=== PATIENT | male | born 1960 | race Caucasian/White ===

== ENCOUNTER → 2016-10-23 | Outpatient (CLI) | payer BC ==
[~2016-10-23] MED LIST: NAPR1TAB9 PO
[2016-10-23 17:49] LABS: BASO % 0.6 %; BASO ABS # 0.04 K/uL (0-0.2); COMPLETE YES; EOS % 1.1 %; HEMATOCRIT 51.1 % (42-52); IG% 0.3 %; LYMPH % 34.5 %; LYMPH ABS # 2.14 K/uL (1.2-3.4); MEAN CELL VOLUME 91.7 fL (80-100); MEAN CORPUSCULAR HEMOGLOBIN 31.4 pg (25-34); MEAN CORPUSCULAR HGB CONC 34.2 g/dl (32-36); MEAN PLATELET VOLUME 11.7 fL (7.4-10.4); MONO % 14.2 %; NEUT % 49.3 %; PLATELET COUNT 222 K/uL (130-400); RED BLOOD COUNT 5.57 M/uL (4.7-6.1)
[2016-10-23 17:55] LABS: ALB/GLOB RATIO 0.9 (0.9-2); ALT/SGPT 52 U/L (12-78); AST/SGOT 27 U/L (15-37); BLOOD UREA NITROGEN 16 mg/dl (7-18); CALCIUM 9.2 mg/dl (8.5-10.1); CARBON DIOXIDE 29 mmol/L (21-32); CHLORIDE 105 mmol/L (98-107); CHOLESTEROL 151 mg/dl (0-200); GLUCOSE 80 mg/dl (70-99); POTASSIUM 4.7 mmol/L (3.5-5.1); SODIUM 139 mmol/L (136-145); TRIGLYCERIDES 134 mg/dl (0-150); VERY LOW DENSITY LIPOPROT CALC 27 mg/dl
[2016-10-23 18:04] LABS: ALKALINE PHOSPHATASE 82 U/L (45-117); CHOLESTEROL/HDL RATIO 4.4; HDL CHOLESTEROL 34 mg/dl; LDL CHOLESTEROL CALCULATED 90 mg/dl; THYROID STIMULATING HORMONE 0.608 uIu/ml (0.300-4.500)
[2016-10-23 18:20] LABS: URINE APPEARANCE CLEAR (CLEAR); URINE COLOR DK YELLOW; URINE EPITHELIAL CELL AUTO 0-5 /lpf (0-5); URINE NITRITE NEG (NEG); URINE SPECIFIC GRAVITY 1.029 (1.000-1.030); UROBILINOGEN NEG (NEG)
[2016-10-23 18:26] LABS: MANUAL MICROSCOPIC REQUIRED? NO; REVIEW REQ? NO
[2016-10-23 18:27] LABS: URINE BILIRUBIN NEG (NEG)
== END | disposition home or self-care (01) ==
LOC: C.LABBFT 12:03
PROVIDERS: ATTEND Nurse Practitioner
DX: I10 Essential (primary) hypertension (principal); Z13.6 Encounter for screening for cardiovascular disorders; Z12.5 Encounter for screening for malignant neoplasm of prostate; R53.83 Other fatigue

== ENCOUNTER → 2017-12-11 | Outpatient (CLI) | payer BC ==
--- NOTE | 2017-12-11 14:55 | DIAGNOSTIC IMAGING REPORT ---
LEFT HAND 3 VIEWS CLINICAL HISTORY: Left hand pain. Loss of strength. FINDINGS: 3 views of the left hand are obtained. No prior studies are available for comparison at the time of dictation. The skeletal structures are well mineralized. No acute fracture is seen. 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 Soft tissue edema is present in the third finger. No bony erosion or periostitis is identified. Minimal osteoarthritic change is seen involving the distal interphalangeal joints and at the first carpometacarpal articulation. Small calcifications are seen in the region of the triangular fibrocartilage. A tiny metallic foreign body is seen in the fifth finger along the radial aspect of the distal shaft of the fifth proximal phalanx. IMPRESSION: 1. No acute bony abnormality is seen in the left hand. 2. There has been amputation of the third finger as above. Mild soft tissue edema is present in the third finger. 3. A tiny metallic foreign body is present in the fifth digit as above. Electronically signed by: Chriss Barron M.D. 12/11/2017 2:54 PM Dictated Date/Time: 12/11/2017 2:51 PM
--- NOTE | 2017-12-11 15:02 | DIAGNOSTIC IMAGING REPORT ---
R HAND MIN 3 VIEWS ROUTINE HISTORY: 57 years-old Male M79.643 acute bilateral hand pain with weakness COMPARISON: Left hand radiographs of same day TECHNIQUE: 3 views of the right hand FINDINGS: Mild radiocarpal, triscaphe and first carpometacarpal osteoarthritis. There is no acute fracture, dislocation or opaque foreign body. IMPRESSION: Degenerative changes as above without acute fracture or dislocation. The above report was generated using voice recognition software. It may contain grammatical, syntax or spelling errors. Electronically signed by: Jose Escudero M.D. 12/11/2017 3:01 PM Dictated Date/Time: 12/11/2017 3:00 PM
[2017-12-11 15:40] LABS: BASO % 0.2 %; BASO ABS # 0.02 K/uL (0-0.2); EOS % 1.3 %; EOS ABS # 0.12 K/uL (0-0.5); HEMATOCRIT 44.8 % (42-52); HEMOGLOBIN 15.2 g/dL (14.0-18.0); IG# 0.01 K/uL (0.00-0.02); LYMPH % 21.2 %; MEAN CELL VOLUME 91.1 fL (80-100); MEAN CORPUSCULAR HEMOGLOBIN 30.9 pg (25-34); MEAN CORPUSCULAR HGB CONC 33.9 g/dl (32-36); MEAN PLATELET VOLUME 11.3 fL (7.4-10.4); MONO % 8.8 %; MONO ABS # 0.83 K/uL (0.11-0.59); NEUT % 68.4 %; NEUT ABS # 6.45 K/uL (1.4-6.5); PLATELET COUNT 269 K/uL (130-400); RED CELL DISTRIBUTION WIDTH CV 13.2 % (11.5-14.5); RED CELL DISTRIBUTION WIDTH SD 43.8 fL (36.4-46.3); WHITE BLOOD COUNT 9.43 K/uL (4.8-10.8)
[2017-12-11 15:55] LABS: ALBUMIN 3.5 gm/dl (3.4-5.0); ALT/SGPT 34 U/L (12-78); AST/SGOT 17 U/L (15-37); BLOOD UREA NITROGEN 19 mg/dl (7-18); CALCIUM 8.7 mg/dl (8.5-10.1); CARBON DIOXIDE 31 mmol/L (21-32); CREATININE 0.91 mg/dl (0.60-1.40); GLUCOSE 83 mg/dl (70-99); SODIUM 139 mmol/L (136-145)
[2017-12-11 16:05] LABS: ALKALINE PHOSPHATASE 73 U/L (45-117); TOTAL PROTEIN 6.8 gm/dl (6.4-8.2)
== END | disposition home or self-care (01) ==
LOC: C.RAD1850 14:19
PROVIDERS: ATTEND Internal Medicine
DX: M79.643 Pain in unspecified hand (principal); R53.83 Other fatigue; R10.9 Unspecified abdominal pain

== ENCOUNTER → 2017-12-18 | Outpatient (CLI) | payer BC | END | disposition home or self-care (01) | LOC: C.LAB1850 12:10 | PROVIDERS: ATTEND Internal Medicine | DX: M79.643 Pain in unspecified hand (principal); R76.8 Other specified abnormal immunological findings in serum ==

== ENCOUNTER 2018-03-22 02:10 | Emergency (ER) | payer BC ==
[~2018-03-22] VITALS: Ht 182.9 cm; Wt 72.5 kg
[~2018-03-22 02:10] MED LIST changes: +METO50TA8 PO; -NAPR1TAB9 PO
[2018-03-22 02:16] VITALS: TEMP 36.6; Ht 182.9 cm; Wt 72.5 kg
[2018-03-22] MEDS ORDERED: AMOXICIL/CLAVU 875MG HOME PACK PO ONE (02:30)
[2018-03-22] MEDS ORDERED: AMOX875T PO (02:37)
[2018-03-22 02:43] VITALS: BP 127/80; PULSE 79; O2SAT 97
--- NOTE | 2018-03-22 02:51 | EMERGENCY ROOM VISIT NOTE ---
ED Visit Note First contact with patient: 02:20 CHIEF COMPLAINT: Finger pain HISTORY OF PRESENT ILLNESS: This 57-year-old patient presents to the emergency department complaining of finger pain and swelling for the past day to his left second finger who had stitches placed 3 weeks ago and removed. Patient states this is his smoking hand. The patient rates the pain as throbbing and 5/10. The patient has full range of motion of the finger. No numbness or tingling. No lacerations. No other injuries. The patient has taken nothing for the pain. Patient states the area is slightly red and swollen. He is able to fully extend and flex the whole finger. No new injury. REVIEW OF SYSTEMS: A 6 system review of systems was completed with positives and pertinent negatives in the HPI. ALLERGIES: None MEDICATIONS: None PMH: None SOCIAL HISTORY: Tobacco use PHYSICAL EXAM: Vital Signs: Reviewed Nurse's notes, vital signs stable. GENERAL : Pleasant male with tobacco odor, in no acute distress, but appears to be in pain, well-developed, well-nourished. MUSCULOSKELETAL: There is no deformity of the left second finger. The patient has full flexion and extension of the left second finger and strength to resistance is intact. The DP joint is maximally tender and there is minimal erythema to the lateral aspect. The finger pad is not tender and there is no edema or erythema to the pad itself. There is no paronychia. There is no ligamentous instability. There is no laceration. Capillary refill less than 2 seconds. No tenderness of the remaining fingers or hand. Full range of motion of the wrist. NEURO: Alert and oriented to person, place, and time. Normal sensation to light and sharp touch. EMERGENCY DEPARTMENT COURSE: I examined the patient. Exam and history seem consistent with developing cellulitis around the incisional site of the laceration that is healing. Patient was started on antibiotics. He was advised to follow-up family care in 2 days for wound recheck or here in the ER sooner for spreading infection, inability to bend the finger, fevers, worsening signs or symptoms or as needed. Patient had no signs of tendon involvement. He had no signs of a felon or paronychia. The patient was discharged home in good condition. DIAGNOSIS: Left second finger cellulitis DISCHARGE INSTRUCTIONS: as below Problem List Surgical Problems: (1) Calcaneal fracture Status: Resolved Current/Historical Medications Scheduled Amoxicillin & Pot Clavulanate (Augmentin 875-125 mg), 1 TAB PO BID Metoprolol Succ (Toprol Xl) (Toprol-Xl), 50 MG PO DAILY Allergies Coded Allergies: No Known Allergies (Verified , 03/22/18) Vital Signs Date Time Temp Pulse Resp B/P (MAP) Pulse Ox O2 Delivery O2 Flow Rate FiO2 03/22/18 02:43 79 18 127/80 97 03/22/18 02:16 36.6 84 16 131/86 97 Room Air Medications Administered Medications (Trade) Dose Ordered Sig/Joan Route Start Time Stop Time Status Last Admin Dose Admin Amoxicillin/ Clavulanate Potassium (Augmentin 875MG Home Pack) 1 homepack UD ONCE PO 03/22/18 02:30 03/22/18 02:31 DC 03/22/18 02:41 1 HOMEPACK Departure Information Impression Primary Impression: Cellulitis of finger, left Dispostion Home / Self-Care Condition GOOD Prescriptions Amoxicillin & Pot Clavulanate (Augmentin 875-125 mg) 1 Tab Tab 1 TAB PO BID for 9 Days, #18 TAB Prov: Siobhan Cotter .PATRICK 03/22/18 Forms WORK / SCHOOL INSTRUCTIONS, HOME CARE DOCUMENTATION FORM, IMPORTANT VISIT INFORMATION Patient Instructions My [facility] Additional Instructions Amoxicillin Clavulanate (Augmentin) 875mg: Take one pill twice daily for 10 days for your infection. All antibiotics can cause diarrhea. If this occurs and you feel worse or it does not resolve in 1-2 days follow up with your doctor or return to the Emergency Department as this could be signs of serious underlying problems. Any medication can cause an allergic reaction, stop the pills immediately and return to the ER for rash, hives, breathing difficulties, or swelling. Ibuprofen(Motrin, Advil) may be used for fever or pain. Use 600mg every six hours as needed. Take with food. Avoid using more than 2400mg in a 24 hour period. Do not use 2400mg per day for more than three consecutive days without physician direction. Prolonged inappropriate use can lead to stomach upset or ulcers. (AND/OR) Acetaminophen(Tylenol) may be used for fever or pain. Use 1000mg every six hours as needed. Avoid using more than 3000mg in a 24 hour period. Rest and drink plenty of fluids. Continue current medications. Return to the ER for severe pain, persistent fevers, spreading redness, or any worsening of your condition. Follow up with your primary physician within 2-3 days for a recheck of the current condition.
== END 2018-03-22 02:43 | disposition home or self-care (01) ==
LOC: C.EDB 02:11
DX: L03.012 Cellulitis of left finger (principal); F17.200 Nicotine dependence, unspecified, uncomplicated